=== PATIENT | male | born 2000 | race Caucasian/White ===

== ENCOUNTER 2020-08-13 17:49 | Emergency (ER) | payer OTHER ==
[2020-08-13 18:54] LABS: RED BLOOD COUNT 4.72 M/UL (4.20-5.50); WHITE BLOOD COUNT 9.7 K/UL (4.5-11.0)
[2020-08-13 19:07] LABS: BUN/CREATININE RATIO 9 (0-10)
[2020-08-13] MEDS ORDERED: LODINE CAP 300300 MG PO (19:30)
[2020-08-13] MEDS ORDERED: ZOFRAN ODT 4 MG4 MG PO (19:30)
== END 2020-08-13 20:05 | disposition home or self-care (01) ==
LOC: ER1 17:49
PROVIDERS: Physician Assistant
DX: R10.814 Left lower quadrant abdominal tenderness (principal)
CPT/HCPCS: 36415; 80053; 81001; 83690; 85025; 87086; 96374; 96375; 99284; J1885; J2405; J7030

== ENCOUNTER 2020-10-28 13:12 | Emergency (ER) | payer OTHER ==
[~2020-10-28 13:12] MED LIST: LODINE CAP 300300 MG PO; ZOFRAN ODT 4 MG4 MG PO
[2020-10-28 14:36] LABS: HEMOGLOBIN 12.3 gm/dl (14.0-17.5); RED BLOOD COUNT 4.31 M/UL (4.20-5.50); WHITE BLOOD COUNT 11.8 K/UL (4.5-11.0)
[2020-10-28 14:56] LABS: BUN/CREATININE RATIO 13 (0-10)
== END 2020-10-28 16:09 | disposition home or self-care (01) ==
LOC: ER1 13:12
PROVIDERS: Family Medicine
DX: T78.40XA Allergy, unspecified, initial encounter (principal); R06.4 Hyperventilation; X58.XXXA Exposure to other specified factors, initial encounter
CPT/HCPCS: 80053; 82550; 82553; 83874; 84484; 85025; 93005; 96372; 99284; J3301